=== PATIENT | female | born 1930 | race Caucasian/White ===

== ENCOUNTER 2016-10-30 09:41 | Inpatient (IN) | payer OTHER, MEDICAID ==
[~2016-10-30] VITALS: Ht 152.4 cm; Wt 83.0 kg
[2016-10-30 09:41] VITALS: BP 110/54; PULSE 100; RESP 21; TEMP 99.4; O2SAT 82
[2016-10-30] MEDS ORDERED: NACL 0.9% 1,000 ML IV ONE (09:55)
[2016-10-30] MEDS ORDERED: ONDANSETRON HCL 4 MG/2 ML VIAL IVP ONE (10:00)
[2016-10-30] MEDS ORDERED: LIP10 PO (10:23)
[2016-10-30] MEDS ORDERED: GABA-531 PO (10:23)
[2016-10-30] MEDS ORDERED: BENA20TA2 PO (10:23)
[2016-10-30] MEDS ORDERED: ALEN70TA3 PO (10:23)
[2016-10-30] MEDS ORDERED: PIOG15TA66 PO (10:23)
[2016-10-30] MEDS ORDERED: ASPI-1063 PO (10:23)
[2016-10-30] MEDS ORDERED: DULR10 RC (10:23)
[2016-10-30] MEDS ORDERED: CALC-995 PO (10:23)
[2016-10-30 10:39] LABS: ANION GAP 8 (5-15); CALCIUM 8.5 mg/dL (8.4-11.0); CHLORIDE 104 mmol/L (98-107); CREATININE 1.57 mg/dL (0.55-1.30); GLUCOSE 132 mg/dL (70-99); POTASSIUM 4.2 mmol/L (3.5-5.1); SODIUM SERUM 140 mmol/L (136-145); UREA NITROGEN, BLOOD 22 mg/dL (8-21)
[2016-10-30 10:43] LABS: ALANINE AMINOTRANSFERASE 14 U/L (12-78); ALBUMIN 2.9 g/dL (3.4-4.8); AMYLASE 37 U/L (0-100); ASPARTATE AMINOTRANSFERASE 45 U/L (10-37); INR 1.1 (0.8-1.2); LIPASE 63 U/L (73-393); PROTHROMBIN TIME 12.2 SECS (9.5-12.5); TOTAL BILIRUBIN 0.6 mg/dL (0.0-1.0); TOTAL PROTEIN, SERUM 7.1 g/dL (6.4-8.3)
[2016-10-30] MEDS ORDERED: MOB7.5 PO (10:58)
[2016-10-30] MEDS ORDERED: MECL12.584 PO (10:58)
[2016-10-30] MEDS ORDERED: METO-442 PO (10:58)
[2016-10-30] MEDS ORDERED: OMEP20CA10 PO (10:58)
[2016-10-30] MEDS ORDERED: SERT100T PO (10:58)
[2016-10-30] MEDS ORDERED: GLU500 PO (10:58)
[2016-10-30] MEDS ORDERED: RISP1TAB7 PO (10:58)
[2016-10-30] MEDS ORDERED: ACET-2165 PO (10:58)
[2016-10-30 11:07] LABS: BILIRUBIN,URINE NEGATIVE (NEGATIVE); BLOOD, URINE 1+ (NEGATIVE); CLARITY/URINE HAZY (CLEAR); COLOR,URINE YELLOW (YELLOW); GLUCOSE,URINE NEGATIVE (NEGATIVE); KETONES,URINE NEGATIVE (NEGATIVE); LEUKOCYTE ESTERASE ,URINE TRACE (NEGATIVE); NITRITE, URINE NEGATIVE (NEGATIVE); PH,URINE 5.5 (5.0-8.0); PROTEIN URINE TRACE (NEGATIVE); UROBILINOGEN,URINE 0.2 (0.2-1.0)
[2016-10-30 11:10] LABS: BASOPHILS % (AUTO) 0.2 % (0.0-2.0); HEMATOCRIT 25.4 % (36-48); HEMOGLOBIN 7.9 g/dL (12.0-16.0); LYMPHOCYTES # (AUTO) 0.4 K/uL (1.0-5.5); LYMPHOCYTES % (AUTO) 3.4 % (20.5-51.5); MEAN CORPUSCULAR HEMOGLOBIN 27 pg (27-31); MEAN CORPUSCULAR HGB CONC 31 % (32-36); MEAN CORPUSCULAR VOLUME 87 fL (79.0-98.0); MONOCYTES # (AUTO) 1.1 K/uL (0.0-1.0); MONOCYTES % (AUTO) 8.7 % (1.7-9.3); NEUTROPHILS # (AUTO) 10.9 K/uL (1.8-7.7); NEUTROPHILS % (AUTO) 87.7 % (40.0-70.0); PLATELET COUNT (AUTO) 270 K/uL (130-430); RED BLOOD CELL COUNT(AUTO) 2.91 MIL/uL (4.2-6.2); RED CELL DISTRIBUTION WIDTH 17.4 % (9.0-15.0); WHITE BLOOD COUNT (AUTO) 12.4 K/uL (4.8-10.8)
[2016-10-30 11:42] LABS: BACTERIA,URINE MANY /HPF (None Seen); RBC,URINE 0-3 /HPF (0-3)
[2016-10-30 11:43] LABS: MUCUS,URINE None Seen /LPF (None Seen)
[2016-10-30] MEDS ORDERED: ACETAMINOPHEN 325 MG TABLET PO PRN (13:45)
[2016-10-30] MEDS ORDERED: BISACODYL 10 MG/SUPPOSITORY RC PRN (13:45)
[2016-10-30] MEDS ORDERED: CEFEPIME 1 GM in D5W 50 ML IV ONE (14:00)
[2016-10-30 14:06] VITALS: BP 121/58; PULSE 91; RESP 16; TEMP 99.1; O2SAT 96
[2016-10-30 14:52] VITALS: BP 121/58; PULSE 91; RESP 16; TEMP 99.1; O2SAT 97
[2016-10-30 20:00] VITALS: BP 116/59; PULSE 84; RESP 20; TEMP 97.8
[2016-10-30] MEDS: ATORVASTATIN 10 MG TABLET PO SCH (20:37)
[2016-10-30] MEDS: GABAPENTIN 300 MG CAPSULE PO SCH (20:37)
[2016-10-30] MEDS: risperiDONE 1 MG TABLET (RisperDAL) PO SCH (20:37)
[2016-10-30 23:58] VITALS: BP 100/52; PULSE 80; RESP 18; TEMP 97.8; O2SAT 97
[2016-10-31 03:43] VITALS: BP 132/66; PULSE 88; RESP 18; TEMP 97.6; O2SAT 97
[2016-10-31 07:55] VITALS: BP 149/71; PULSE 92; RESP 16; TEMP 97.8; O2SAT 100
[2016-10-31] MEDS: risperiDONE 1 MG TABLET (RisperDAL) PO SCH ×2 (10:06→20:52)
[2016-10-31] MEDS: GABAPENTIN 300 MG CAPSULE PO SCH ×2 (10:06→20:52)
[2016-10-31] MEDS: ASPIRIN 81 MG TABLET(ECOTRIN) PO SCH (10:07)
[2016-10-31] MEDS: SERTRALINE HCL 50 MG TABLET PO SCH (10:08)
[2016-10-31] MEDS: NACL 0.9% 1,000 ML IV SCH ×2 (10:12→20:52)
[2016-10-31 10:43] LABS: BASOPHILS % (AUTO) 0.5 % (0.0-2.0); EOSINOPHILS # (AUTO) 0.1 K/uL (0.0-0.4); HEMOGLOBIN 7.8 g/dL (12.0-16.0); LYMPHOCYTES # (AUTO) 0.8 K/uL (1.0-5.5); LYMPHOCYTES % (AUTO) 9.4 % (20.5-51.5); MEAN CORPUSCULAR HEMOGLOBIN 27 pg (27-31); MEAN CORPUSCULAR HGB CONC 31 % (32-36); MEAN CORPUSCULAR VOLUME 88 fL (79.0-98.0); MONOCYTES # (AUTO) 0.4 K/uL (0.0-1.0); MONOCYTES % (AUTO) 4.8 % (1.7-9.3); NEUTROPHILS # (AUTO) 6.9 K/uL (1.8-7.7); NEUTROPHILS % (AUTO) 84.3 % (40.0-70.0); PLATELET COUNT (AUTO) 263 K/uL (130-430); RED BLOOD CELL COUNT(AUTO) 2.85 MIL/uL (4.2-6.2); RED CELL DISTRIBUTION WIDTH 17.9 % (9.0-15.0)
[2016-10-31 10:46] LABS: ANION GAP 5 (5-15); CALCIUM 8.3 mg/dL (8.4-11.0); CHLORIDE 106 mmol/L (98-107); CREATININE 1.53 mg/dL (0.55-1.30); GLUCOSE 194 mg/dL (70-99); POTASSIUM 4.3 mmol/L (3.5-5.1); SODIUM SERUM 141 mmol/L (136-145); UREA NITROGEN, BLOOD 26 mg/dL (8-21)
[2016-10-31 10:52] LABS: WHITE BLOOD COUNT (AUTO) 8.2 K/uL (4.8-10.8)
[2016-10-31 11:28] VITALS: BP 106/47; PULSE 106; RESP 19; TEMP 98.1; O2SAT 96
[2016-10-31 15:28] VITALS: BP 141/66; PULSE 98; RESP 19; TEMP 99.1; O2SAT 99
[2016-10-31 19:30] VITALS: BP 158/81; PULSE 102; RESP 18; TEMP 99.2; O2SAT 95
[2016-10-31] MEDS: ATORVASTATIN 10 MG TABLET PO SCH (20:52)
[2016-10-31] MEDS: CEFEPIME 1 GM in D5W 50 ML IV SCH (21:21)
[2016-11-01] VITALS (8 sets, daily range): BP systolic 97–161; BP diastolic 52–96; PULSE 80–100; RESP 18–20; TEMP 97.8–99.4; O2SAT 93–98
[2016-11-01 07:28] LABS: BASOPHILS % (AUTO) 0.6 % (0.0-2.0); EOSINOPHILS # (AUTO) 0.1 K/uL (0.0-0.4); EOSINOPHILS % (AUTO) 1.9 % (0.0-4.0); HEMATOCRIT 23.7 % (36-48); HEMOGLOBIN 7.4 g/dL (12.0-16.0); LYMPHOCYTES # (AUTO) 0.9 K/uL (1.0-5.5); MEAN CORPUSCULAR HEMOGLOBIN 28 pg (27-31); MEAN CORPUSCULAR HGB CONC 31 % (32-36); MEAN CORPUSCULAR VOLUME 88 fL (79.0-98.0); MONOCYTES # (AUTO) 0.5 K/uL (0.0-1.0); MONOCYTES % (AUTO) 8.3 % (1.7-9.3); NEUTROPHILS % (AUTO) 75.2 % (40.0-70.0); PLATELET COUNT (AUTO) 251 K/uL (130-430); RED BLOOD CELL COUNT(AUTO) 2.69 MIL/uL (4.2-6.2); RED CELL DISTRIBUTION WIDTH 17.8 % (9.0-15.0); WHITE BLOOD COUNT (AUTO) 6.5 K/uL (4.8-10.8)
[2016-11-01 07:34] LABS: ANION GAP 4 (5-15); CALCIUM 7.9 mg/dL (8.4-11.0); CHLORIDE 105 mmol/L (98-107); CREATININE 1.18 mg/dL (0.55-1.30); FREE T4 (FREE THYROXINE) 0.8 ng/dL (0.6-1.6); GLUCOSE 121 mg/dL (70-99); POTASSIUM 4.2 mmol/L (3.5-5.1); SODIUM SERUM 139 mmol/L (136-145); THYROID STIMULATING HORMONE 1.07 uIu/mL (0.34-4.82); UREA NITROGEN, BLOOD 21 mg/dL (8-21)
[2016-11-01] MEDS: GABAPENTIN 300 MG CAPSULE PO SCH ×2 (09:46→21:29)
[2016-11-01] MEDS: SERTRALINE HCL 50 MG TABLET PO SCH (09:46)
[2016-11-01] MEDS: risperiDONE 1 MG TABLET (RisperDAL) PO SCH ×2 (09:46→21:29)
[2016-11-01] MEDS: NACL 0.9% 1,000 ML IV SCH (09:47)
[2016-11-01] MEDS: ASPIRIN 81 MG TABLET(ECOTRIN) PO SCH (09:47)
[2016-11-01] MEDS: CEFEPIME 1 GM in D5W 50 ML IV SCH ×2 (10:26→21:28)
[2016-11-01] MEDS: INSULIN REGULAR, HUMAN 100 UNITS/ML, 10 ML VIAL (novoLIN R) SUBCUT PRN (13:15)
[2016-11-01] MEDS ORDERED: FUROSEMIDE 20 MG/2 ML VIAL IVP ONE ×2 (14:45→23:45)
[2016-11-01] MEDS: ATORVASTATIN 10 MG TABLET PO SCH (21:28)
[2016-11-02] MEDS: IPRATROPIUM/ALBUTEROL SULFATE 3 ML AMPUL.NEB INH SCH ×7 (02:12→23:23)
[2016-11-02] MEDS: NACL 0.9% 1,000 ML IV SCH ×2 (02:52→10:54)
[2016-11-02 05:46] VITALS: BP 113/70; PULSE 84; RESP 22; TEMP 99.2; O2SAT 94
[2016-11-02 06:35] LABS: ANION GAP 7 (5-15); CALCIUM 8.2 mg/dL (8.4-11.0); CHLORIDE 106 mmol/L (98-107); CREATININE 1.22 mg/dL (0.55-1.30); GLUCOSE 155 mg/dL (70-99); POTASSIUM 4.1 mmol/L (3.5-5.1); SODIUM SERUM 141 mmol/L (136-145); UREA NITROGEN, BLOOD 18 mg/dL (8-21)
[2016-11-02 06:36] LABS: BASOPHILS % (AUTO) 0.7 % (0.0-2.0); EOSINOPHILS # (AUTO) 0.1 K/uL (0.0-0.4); EOSINOPHILS % (AUTO) 0.8 % (0.0-4.0); HEMATOCRIT 24.4 % (36-48); HEMOGLOBIN 7.6 g/dL (12.0-16.0); LYMPHOCYTES # (AUTO) 0.8 K/uL (1.0-5.5); LYMPHOCYTES % (AUTO) 12.5 % (20.5-51.5); MEAN CORPUSCULAR HEMOGLOBIN 27 pg (27-31); MEAN CORPUSCULAR HGB CONC 31 % (32-36); MEAN CORPUSCULAR VOLUME 88 fL (79.0-98.0); MONOCYTES # (AUTO) 0.8 K/uL (0.0-1.0); MONOCYTES % (AUTO) 11.4 % (1.7-9.3); NEUTROPHILS # (AUTO) 4.9 K/uL (1.8-7.7); NEUTROPHILS % (AUTO) 74.6 % (40.0-70.0); PLATELET COUNT (AUTO) 236 K/uL (130-430); RED BLOOD CELL COUNT(AUTO) 2.76 MIL/uL (4.2-6.2); RED CELL DISTRIBUTION WIDTH 17.9 % (9.0-15.0); WHITE BLOOD COUNT (AUTO) 6.6 K/uL (4.8-10.8)
[2016-11-02 08:00] VITALS: BP 139/62; PULSE 104; RESP 24; TEMP 98; O2SAT 94
[2016-11-02] MEDS: CEFEPIME 1 GM in D5W 50 ML IV SCH ×2 (09:29→21:24)
[2016-11-02] MEDS: SERTRALINE HCL 50 MG TABLET PO SCH (09:29)
[2016-11-02] MEDS: GABAPENTIN 300 MG CAPSULE PO SCH ×2 (09:30→21:26)
[2016-11-02] MEDS: ASPIRIN 81 MG TABLET(ECOTRIN) PO SCH (09:30)
[2016-11-02] MEDS: risperiDONE 1 MG TABLET (RisperDAL) PO SCH ×2 (09:30→21:27)
[2016-11-02] MEDS: LISINOPRIL 10 MG TABLET (PRINIVIL) PO SCH (09:31)
[2016-11-02 12:36] VITALS: BP 130/60; PULSE 90; RESP 19; TEMP 98; O2SAT 98
[2016-11-02 16:20] VITALS: BP 138/72; PULSE 94; RESP 18; TEMP 97.8; O2SAT 97
[2016-11-02 19:00] VITALS: BP 145/76; PULSE 101; RESP 16; TEMP 98.1; O2SAT 98
[2016-11-02 20:00] VITALS: BP 145/76; PULSE 101; RESP 16; TEMP 98.1; O2SAT 98
[2016-11-02] MEDS: ATORVASTATIN 10 MG TABLET PO SCH (21:26)
[2016-11-03] VITALS (7 sets, daily range): BP systolic 126–188; BP diastolic 64–101; PULSE 70–104; RESP 16–22; TEMP 97.1–98.8; O2SAT 91–97
[2016-11-03] MEDS: NACL 0.9% 1,000 ML IV SCH (03:29)
[2016-11-03] MEDS: IPRATROPIUM/ALBUTEROL SULFATE 3 ML AMPUL.NEB INH SCH ×6 (03:52→23:25)
[2016-11-03 07:27] LABS: BASOPHILS % (AUTO) 0.8 % (0.0-2.0); EOSINOPHILS # (AUTO) 0.1 K/uL (0.0-0.4); EOSINOPHILS % (AUTO) 2.6 % (0.0-4.0); HEMATOCRIT 24.7 % (36-48); HEMOGLOBIN 7.7 g/dL (12.0-16.0); LYMPHOCYTES # (AUTO) 0.8 K/uL (1.0-5.5); LYMPHOCYTES % (AUTO) 17.9 % (20.5-51.5); MEAN CORPUSCULAR HEMOGLOBIN 28 pg (27-31); MEAN CORPUSCULAR HGB CONC 31 % (32-36); MEAN CORPUSCULAR VOLUME 89 fL (79.0-98.0); MONOCYTES # (AUTO) 0.5 K/uL (0.0-1.0); MONOCYTES % (AUTO) 11.2 % (1.7-9.3); NEUTROPHILS # (AUTO) 3.2 K/uL (1.8-7.7); NEUTROPHILS % (AUTO) 67.5 % (40.0-70.0); PLATELET COUNT (AUTO) 248 K/uL (130-430); RED BLOOD CELL COUNT(AUTO) 2.78 MIL/uL (4.2-6.2); RED CELL DISTRIBUTION WIDTH 18.4 % (9.0-15.0)
[2016-11-03 07:44] LABS: WHITE BLOOD COUNT (AUTO) 4.6 K/uL (4.8-10.8)
[2016-11-03] MEDS: CEFEPIME 1 GM in D5W 50 ML IV SCH (08:41)
[2016-11-03] MEDS: GABAPENTIN 300 MG CAPSULE PO SCH ×2 (08:42→21:22)
[2016-11-03] MEDS: risperiDONE 1 MG TABLET (RisperDAL) PO SCH ×2 (08:42→21:22)
[2016-11-03] MEDS: SERTRALINE HCL 50 MG TABLET PO SCH (08:42)
[2016-11-03] MEDS: ASPIRIN 81 MG TABLET(ECOTRIN) PO SCH (08:42)
[2016-11-03] MEDS: LISINOPRIL 10 MG TABLET (PRINIVIL) PO SCH (08:43)
[2016-11-03] MEDS: cloNIDine HCL 0.1 MG TABLET PO PRN (08:44)
[2016-11-03] MEDS ORDERED: LISINOPRIL 10 MG TABLET (PRINIVIL) PO ONE (11:45)
[2016-11-03] MEDS ORDERED: METOPROLOL SUCCINATE 50 MG TAB.SR.24H (TOPROL XL) PO ONE (12:00)
[2016-11-03] MEDS ORDERED: cefTRIAXone 1 GM in D5W 50 ML IV SCH (12:15)
[2016-11-03] MEDS ORDERED: CEFTAZIDIME 1 GM in D5W 50 ML IV ONE (13:15)
[2016-11-03] MEDS: CEFTAZIDIME 1 GM in D5W 50 ML IV SCH (21:21)
[2016-11-03] MEDS: ATORVASTATIN 10 MG TABLET PO SCH (21:22)
[2016-11-04] VITALS: BP 156/83; PULSE 91; RESP 18; TEMP 97.6; O2SAT 95
[2016-11-04] MEDS: NACL 0.9% 1,000 ML IV SCH ×2 (00:06→21:18)
[2016-11-04] MEDS: cloNIDine HCL 0.1 MG TABLET PO PRN (00:10)
[2016-11-04] MEDS: IPRATROPIUM/ALBUTEROL SULFATE 3 ML AMPUL.NEB INH SCH ×6 (03:00→23:37)
[2016-11-04 04:33] VITALS: BP 148/82; PULSE 89; RESP 18; TEMP 98; O2SAT 96
[2016-11-04 08:00] VITALS: BP 125/63; PULSE 84; RESP 15; TEMP 97.9; O2SAT 95
[2016-11-04] MEDS: SERTRALINE HCL 50 MG TABLET PO SCH (09:40)
[2016-11-04] MEDS: GABAPENTIN 300 MG CAPSULE PO SCH ×2 (09:42→21:18)
[2016-11-04] MEDS: risperiDONE 1 MG TABLET (RisperDAL) PO SCH ×2 (09:42→21:18)
[2016-11-04] MEDS: LISINOPRIL 10 MG TABLET (PRINIVIL) PO SCH (09:42)
[2016-11-04] MEDS: METOPROLOL SUCCINATE 50 MG TAB.SR.24H (TOPROL XL) PO SCH (09:43)
[2016-11-04] MEDS: ASPIRIN 81 MG TABLET(ECOTRIN) PO SCH (09:43)
[2016-11-04] MEDS: CEFTAZIDIME 1 GM in D5W 50 ML IV SCH ×2 (09:44→21:14)
[2016-11-04 12:08] VITALS: BP 114/56; PULSE 78; RESP 17; TEMP 97.4; O2SAT 98
[2016-11-04] MEDS: INSULIN REGULAR, HUMAN 100 UNITS/ML, 10 ML VIAL (novoLIN R) SUBCUT PRN ×2 (13:50→21:34)
[2016-11-04 16:09] VITALS: Ht 152.4 cm; Wt 83.0 kg
[2016-11-04 16:12] VITALS: BP 118/65; PULSE 71; RESP 19; TEMP 97.7; O2SAT 100
[2016-11-04 19:50] VITALS: BP 134/65; PULSE 89; RESP 18; TEMP 97.9; O2SAT 98
[2016-11-04] MEDS: ATORVASTATIN 10 MG TABLET PO SCH (21:18)
[2016-11-05] VITALS: BP 113/54; PULSE 87; PULSE 95; RESP 16; TEMP 97.8; O2SAT 95
[2016-11-05] MEDS: IPRATROPIUM/ALBUTEROL SULFATE 3 ML AMPUL.NEB INH SCH ×7 (03:00→23:35)
[2016-11-05 04:00] VITALS: BP 131/69; PULSE 83; RESP 18; TEMP 97.8; O2SAT 97
[2016-11-05 07:32] LABS: BASOPHILS # (AUTO) 0.1 K/uL (0.0-0.2); EOSINOPHILS # (AUTO) 0.2 K/uL (0.0-0.4); EOSINOPHILS % (AUTO) 3.5 % (0.0-4.0); HEMATOCRIT 22.6 % (36-48); HEMOGLOBIN 7.2 g/dL (12.0-16.0); LYMPHOCYTES # (AUTO) 0.7 K/uL (1.0-5.5); MEAN CORPUSCULAR HEMOGLOBIN 28 pg (27-31); MEAN CORPUSCULAR HGB CONC 32 % (32-36); MEAN CORPUSCULAR VOLUME 88 fL (79.0-98.0); MONOCYTES # (AUTO) 0.6 K/uL (0.0-1.0); MONOCYTES % (AUTO) 10.4 % (1.7-9.3); NEUTROPHILS # (AUTO) 3.7 K/uL (1.8-7.7); NEUTROPHILS % (AUTO) 71.1 % (40.0-70.0); PLATELET COUNT (AUTO) 244 K/uL (130-430); RED BLOOD CELL COUNT(AUTO) 2.58 MIL/uL (4.2-6.2); RED CELL DISTRIBUTION WIDTH 17.9 % (9.0-15.0); WHITE BLOOD COUNT (AUTO) 5.3 K/uL (4.8-10.8)
[2016-11-05 07:46] LABS: ANION GAP 6 (5-15); CHLORIDE 108 mmol/L (98-107); CREATININE 0.95 mg/dL (0.55-1.30); GLUCOSE 105 mg/dL (70-99); POTASSIUM 4.3 mmol/L (3.5-5.1); SODIUM SERUM 141 mmol/L (136-145); UREA NITROGEN, BLOOD 17 mg/dL (8-21)
[2016-11-05] MEDS: GABAPENTIN 300 MG CAPSULE PO SCH ×2 (09:00→21:17)
[2016-11-05] MEDS: LISINOPRIL 10 MG TABLET (PRINIVIL) PO SCH (09:00)
[2016-11-05] MEDS: METOPROLOL SUCCINATE 50 MG TAB.SR.24H (TOPROL XL) PO SCH (09:00)
[2016-11-05] MEDS: SERTRALINE HCL 50 MG TABLET PO SCH (09:00)
[2016-11-05] MEDS: risperiDONE 1 MG TABLET (RisperDAL) PO SCH ×2 (09:00→21:17)
[2016-11-05] MEDS: ASPIRIN 81 MG TABLET(ECOTRIN) PO SCH (09:00)
[2016-11-05 10:01] VITALS: BP 131/69; PULSE 81
[2016-11-05] MEDS: CEFTAZIDIME 1 GM in D5W 50 ML IV SCH ×2 (11:57→20:46)
[2016-11-05 12:00] VITALS: BP 104/3; PULSE 79; RESP 18; TEMP 97.7; O2SAT 100
[2016-11-05] MEDS ORDERED: SIMETHICONE 40 MG/0.6 ML ML ONE (12:00)
[2016-11-05] MEDS: MEPERIDINE HCL/PF 100 MG/ML AMP ONE ×2 (13:24→13:29)
[2016-11-05] MEDS: MIDAZOLAM HCL 5 MG/5 ML VIAL ONE ×2 (13:24→13:29)
[2016-11-05] MEDS ORDERED: SORBITOL 70% SOLUTION, 30 ML UDBTL PO ONE (14:00)
[2016-11-05 16:00] VITALS: BP 121/55; PULSE 86; RESP 18; TEMP 97.3; O2SAT 98
[2016-11-05] MEDS: LACTULOSE 20 GM/30 ML UDC PO SCH ×2 (16:53→21:17)
[2016-11-05] MEDS ORDERED: BISACODYL 5 MG TABLET.DR (DULCOLAX) PO ONE (17:00)
[2016-11-05] MEDS ORDERED: MAGNESIUM CITRATE 300 ML ORAL SOLUTION PO ONE (19:00)
[2016-11-05 19:50] VITALS: BP 147/66; PULSE 95; RESP 18; TEMP 97; O2SAT 100
[2016-11-05] MEDS: ATORVASTATIN 10 MG TABLET PO SCH (21:17)
[2016-11-05] MEDS: NACL 0.9% 1,000 ML IV SCH (21:22)
[2016-11-05] MEDS: INSULIN REGULAR, HUMAN 100 UNITS/ML, 10 ML VIAL (novoLIN R) SUBCUT PRN (21:32)
[2016-11-06] MEDS: LACTULOSE 20 GM/30 ML UDC PO SCH ×2 (00:26→04:12)
[2016-11-06] MEDS ORDERED: FUROSEMIDE 20 MG/2 ML VIAL IVP ONE (01:15)
[2016-11-06 01:24] VITALS: BP 128/66; PULSE 96; RESP 20; TEMP 96.6; O2SAT 96
[2016-11-06] MEDS: IPRATROPIUM/ALBUTEROL SULFATE 3 ML AMPUL.NEB INH SCH ×6 (03:30→23:38)
[2016-11-06 05:05] VITALS: BP 143/71; PULSE 89; RESP 19; TEMP 97.3; O2SAT 98
[2016-11-06 07:34] LABS: BASOPHILS % (AUTO) 0.7 % (0.0-2.0); EOSINOPHILS # (AUTO) 0.2 K/uL (0.0-0.4); EOSINOPHILS % (AUTO) 2.9 % (0.0-4.0); HEMATOCRIT 29.8 % (36-48); HEMOGLOBIN 9.2 g/dL (12.0-16.0); LYMPHOCYTES # (AUTO) 0.6 K/uL (1.0-5.5); MEAN CORPUSCULAR HEMOGLOBIN 28 pg (27-31); MEAN CORPUSCULAR HGB CONC 31 % (32-36); MEAN CORPUSCULAR VOLUME 89 fL (79.0-98.0); MONOCYTES # (AUTO) 0.6 K/uL (0.0-1.0); MONOCYTES % (AUTO) 9.4 % (1.7-9.3); NEUTROPHILS # (AUTO) 4.6 K/uL (1.8-7.7); PLATELET COUNT (AUTO) 293 K/uL (130-430); RED BLOOD CELL COUNT(AUTO) 3.36 MIL/uL (4.2-6.2); RED CELL DISTRIBUTION WIDTH 17.5 % (9.0-15.0)
[2016-11-06 07:42] LABS: ANION GAP 7 (5-15); CALCIUM 8.8 mg/dL (8.4-11.0); CHLORIDE 111 mmol/L (98-107); CREATININE 1.05 mg/dL (0.55-1.30); GLUCOSE 130 mg/dL (70-99); POTASSIUM 4.3 mmol/L (3.5-5.1); SODIUM SERUM 146 mmol/L (136-145); UREA NITROGEN, BLOOD 14 mg/dL (8-21)
[2016-11-06 08:07] LABS: INR 1.1 (0.8-1.2); PROTHROMBIN TIME 11.9 SECS (9.5-12.5)
[2016-11-06 08:09] LABS: IRON (SERUM) 33 mcg/dL (37-145); TOTAL IRON BIND. CAPACITY 329 ug/dL (250-450)
[2016-11-06] MEDS: METOPROLOL SUCCINATE 50 MG TAB.SR.24H (TOPROL XL) PO SCH (08:23)
[2016-11-06] MEDS: CEFTAZIDIME 1 GM in D5W 50 ML IV SCH ×2 (08:24→21:39)
[2016-11-06 08:49] VITALS: BP 159/68; PULSE 93; RESP 18; TEMP 96.8; O2SAT 97
[2016-11-06] MEDS: GABAPENTIN 300 MG CAPSULE PO SCH ×2 (09:00→20:40)
[2016-11-06] MEDS: risperiDONE 1 MG TABLET (RisperDAL) PO SCH ×2 (09:00→20:40)
[2016-11-06 12:14] LABS: AFP, TUMOR MARKER 1.9 ng/mL (0.0-8.3)
[2016-11-06] MEDS ORDERED: SIMETHICONE 40 MG/0.6 ML ML ONE (12:41)
[2016-11-06 12:55] VITALS: BP 175/77; PULSE 81; RESP 17; TEMP 97.9; O2SAT 100
[2016-11-06] MEDS: MIDAZOLAM HCL 5 MG/5 ML VIAL ONE ×3 (15:16→15:23)
[2016-11-06] MEDS: MEPERIDINE HCL/PF 50 MG/ML AMP ONE ×3 (15:16→15:23)
[2016-11-06] MEDS: ASPIRIN 81 MG TABLET(ECOTRIN) PO SCH (17:49)
[2016-11-06] MEDS: LISINOPRIL 10 MG TABLET (PRINIVIL) PO SCH (17:50)
[2016-11-06] MEDS: SERTRALINE HCL 50 MG TABLET PO SCH (17:51)
[2016-11-06 18:55] VITALS: BP 167/85; PULSE 81; RESP 17; TEMP 98.5; O2SAT 94
[2016-11-06 18:58] LABS: ANTI NUCLEAR AB WITH REFLEX Negative (Negative)
[2016-11-06 19:45] VITALS: BP 149/72; PULSE 82; RESP 18; TEMP 98.5; O2SAT 97
[2016-11-06] MEDS: ATORVASTATIN 10 MG TABLET PO SCH (20:40)
[2016-11-06] MEDS: NACL 0.9% 1,000 ML IV SCH (20:40)
[2016-11-06] MEDS: INSULIN REGULAR, HUMAN 100 UNITS/ML, 10 ML VIAL (novoLIN R) SUBCUT PRN (20:41)
[2016-11-06 21:50] LABS: RBC, BODY FLUID 99 /uL
[2016-11-06 21:54] LABS: WBC, BODY FLUID 134 /uL
[2016-11-07] VITALS (7 sets, daily range): BP systolic 119–153; BP diastolic 55–81; PULSE 67–82; RESP 16–18; TEMP 97.2–98.4; O2SAT 97–98
[2016-11-07] MEDS: IPRATROPIUM/ALBUTEROL SULFATE 3 ML AMPUL.NEB INH SCH ×6 (03:26→23:25)
[2016-11-07] MEDS: MEPERIDINE HCL/PF 50 MG/ML AMP ONE (06:15)
[2016-11-07] MEDS: MIDAZOLAM HCL 5 MG/5 ML VIAL ONE (06:15)
[2016-11-07 06:59] LABS: BASOPHILS % (AUTO) 0.7 % (0.0-2.0); EOSINOPHILS # (AUTO) 0.1 K/uL (0.0-0.4); EOSINOPHILS % (AUTO) 2.4 % (0.0-4.0); HEMATOCRIT 26.3 % (36-48); HEMOGLOBIN 8.2 g/dL (12.0-16.0); LYMPHOCYTES # (AUTO) 0.8 K/uL (1.0-5.5); LYMPHOCYTES % (AUTO) 16.6 % (20.5-51.5); MEAN CORPUSCULAR HEMOGLOBIN 28 pg (27-31); MEAN CORPUSCULAR HGB CONC 31 % (32-36); MEAN CORPUSCULAR VOLUME 90 fL (79.0-98.0); MONOCYTES # (AUTO) 0.5 K/uL (0.0-1.0); MONOCYTES % (AUTO) 9.3 % (1.7-9.3); NEUTROPHILS # (AUTO) 3.6 K/uL (1.8-7.7); PLATELET COUNT (AUTO) 249 K/uL (130-430); RED BLOOD CELL COUNT(AUTO) 2.94 MIL/uL (4.2-6.2); RED CELL DISTRIBUTION WIDTH 17.7 % (9.0-15.0)
[2016-11-07 07:13] LABS: ANION GAP 5 (5-15); CHLORIDE 113 mmol/L (98-107); CREATININE 0.83 mg/dL (0.55-1.30); GLUCOSE 100 mg/dL (70-99); POTASSIUM 3.6 mmol/L (3.5-5.1); SODIUM SERUM 145 mmol/L (136-145); UREA NITROGEN, BLOOD 13 mg/dL (8-21)
[2016-11-07] MEDS: CEFTAZIDIME 1 GM in D5W 50 ML IV SCH ×2 (08:37→21:25)
[2016-11-07] MEDS: LISINOPRIL 10 MG TABLET (PRINIVIL) PO SCH (08:38)
[2016-11-07] MEDS: METOPROLOL SUCCINATE 50 MG TAB.SR.24H (TOPROL XL) PO SCH (08:39)
[2016-11-07 09:39] LABS: ALPHA-1-ANTITRYPSIN, S 207 mg/dL (90-200)
[2016-11-07 11:08] LABS: FOLATE (FOLIC ACID) 9.4 ng/mL (>3.0)
[2016-11-07 11:08] LABS: HEPATITIS A AB, IgM Negative (Negative); HEPATITIS B CORE AB, IgM Negative (Negative); HEPATITIS B SURFACE AG Negative (Negative)
[2016-11-07] MEDS: GABAPENTIN 300 MG CAPSULE PO SCH ×2 (11:59→21:26)
[2016-11-07] MEDS: SERTRALINE HCL 50 MG TABLET PO SCH (12:00)
[2016-11-07] MEDS: risperiDONE 1 MG TABLET (RisperDAL) PO SCH ×2 (12:00→21:27)
[2016-11-07] MEDS: ASPIRIN 81 MG TABLET(ECOTRIN) PO SCH (12:00)
[2016-11-07 12:08] LABS: ANTI-SMOOTH MUSCLE AB 9 Units (0-19)
[2016-11-07] MEDS: ATORVASTATIN 10 MG TABLET PO SCH (21:26)
[2016-11-08] VITALS (8 sets, daily range): BP systolic 133–162; BP diastolic 64–80; PULSE 72–83; RESP 17–19; TEMP 97.1–98.9; O2SAT 94–99
[2016-11-08] MEDS: IPRATROPIUM/ALBUTEROL SULFATE 3 ML AMPUL.NEB INH SCH ×5 (03:00→20:58)
[2016-11-08] MEDS: D5/0.45 NS 1,000 ML IV SCH (05:46)
[2016-11-08 07:30] LABS: BASOPHILS % (AUTO) 0.9 % (0.0-2.0); EOSINOPHILS # (AUTO) 0.2 K/uL (0.0-0.4); EOSINOPHILS % (AUTO) 3.3 % (0.0-4.0); HEMOGLOBIN 8.6 g/dL (12.0-16.0); LYMPHOCYTES % (AUTO) 17.7 % (20.5-51.5); MEAN CORPUSCULAR HEMOGLOBIN 28 pg (27-31); MEAN CORPUSCULAR HGB CONC 31 % (32-36); MONOCYTES # (AUTO) 0.5 K/uL (0.0-1.0); MONOCYTES % (AUTO) 9.2 % (1.7-9.3); NEUTROPHILS # (AUTO) 3.7 K/uL (1.8-7.7); NEUTROPHILS % (AUTO) 68.9 % (40.0-70.0); PLATELET COUNT (AUTO) 249 K/uL (130-430); RED CELL DISTRIBUTION WIDTH 17.3 % (9.0-15.0); WHITE BLOOD COUNT (AUTO) 5.4 K/uL (4.8-10.8)
[2016-11-08 07:47] LABS: HEMATOCRIT 27.7 % (36-48); MEAN CORPUSCULAR VOLUME 89 fL (79.0-98.0); RED BLOOD CELL COUNT(AUTO) 3.11 MIL/uL (4.2-6.2)
[2016-11-08] MEDS: ASPIRIN 81 MG TABLET(ECOTRIN) PO SCH (10:02)
[2016-11-08] MEDS: SERTRALINE HCL 50 MG TABLET PO SCH (10:03)
[2016-11-08] MEDS: FUROSEMIDE 40 MG TABLET PO SCH (10:03)
[2016-11-08] MEDS: GABAPENTIN 300 MG CAPSULE PO SCH ×2 (10:03→20:51)
[2016-11-08] MEDS: SPIRONOLACTONE 50 MG TABLET (ALDACTONE) PO SCH (10:04)
[2016-11-08] MEDS: LISINOPRIL 10 MG TABLET (PRINIVIL) PO SCH (10:13)
[2016-11-08] MEDS: cloNIDine HCL 0.1 MG TABLET PO PRN (10:13)
[2016-11-08] MEDS: risperiDONE 1 MG TABLET (RisperDAL) PO SCH ×2 (10:14→20:51)
[2016-11-08] MEDS: METOPROLOL SUCCINATE 50 MG TAB.SR.24H (TOPROL XL) PO SCH (10:14)
[2016-11-08] MEDS: CEFTAZIDIME 1 GM in D5W 50 ML IV SCH ×2 (10:15→20:51)
[2016-11-08] MEDS: INSULIN REGULAR, HUMAN 100 UNITS/ML, 10 ML VIAL (novoLIN R) SUBCUT PRN (18:10)
[2016-11-08] MEDS: ATORVASTATIN 10 MG TABLET PO SCH (20:51)
[2016-11-09] VITALS: BP 147/75; PULSE 76; RESP 16; TEMP 97.9; O2SAT 96
[2016-11-09 04:00] VITALS: BP 148/70; PULSE 74; RESP 16; TEMP 97.1; O2SAT 75
[2016-11-09] MEDS: IPRATROPIUM/ALBUTEROL SULFATE 3 ML AMPUL.NEB INH SCH ×5 (04:20→19:28)
[2016-11-09] MEDS: D5/0.45 NS 1,000 ML IV SCH ×2 (06:01→08:45)
[2016-11-09 07:01] LABS: ANION GAP 6 (5-15); CALCIUM 8.5 mg/dL (8.4-11.0); CHLORIDE 106 mmol/L (98-107); CREATININE 0.96 mg/dL (0.55-1.30); GLUCOSE 122 mg/dL (70-99); POTASSIUM 3.5 mmol/L (3.5-5.1); SODIUM SERUM 142 mmol/L (136-145); UREA NITROGEN, BLOOD 14 mg/dL (8-21)
[2016-11-09 07:12] LABS: BASOPHILS % (AUTO) 0.7 % (0.0-2.0); EOSINOPHILS # (AUTO) 0.1 K/uL (0.0-0.4); EOSINOPHILS % (AUTO) 2.4 % (0.0-4.0); HEMATOCRIT 29.5 % (36-48); HEMOGLOBIN 9.3 g/dL (12.0-16.0); LYMPHOCYTES # (AUTO) 0.7 K/uL (1.0-5.5); LYMPHOCYTES % (AUTO) 14.2 % (20.5-51.5); MEAN CORPUSCULAR HEMOGLOBIN 28 pg (27-31); MEAN CORPUSCULAR HGB CONC 32 % (32-36); MEAN CORPUSCULAR VOLUME 88 fL (79.0-98.0); MONOCYTES # (AUTO) 0.4 K/uL (0.0-1.0); MONOCYTES % (AUTO) 8.1 % (1.7-9.3); NEUTROPHILS % (AUTO) 74.6 % (40.0-70.0); PLATELET COUNT (AUTO) 265 K/uL (130-430); RED BLOOD CELL COUNT(AUTO) 3.35 MIL/uL (4.2-6.2); RED CELL DISTRIBUTION WIDTH 17.9 % (9.0-15.0); WHITE BLOOD COUNT (AUTO) 5.2 K/uL (4.8-10.8)
[2016-11-09 08:35] VITALS: BP 161/83; PULSE 82; RESP 16; TEMP 97.4; O2SAT 97
[2016-11-09] MEDS: CEFTAZIDIME 1 GM in D5W 50 ML IV SCH ×2 (10:27→21:28)
[2016-11-09] MEDS: ASPIRIN 81 MG TABLET(ECOTRIN) PO SCH (10:27)
[2016-11-09] MEDS: METOPROLOL SUCCINATE 50 MG TAB.SR.24H (TOPROL XL) PO SCH (10:27)
[2016-11-09] MEDS: LISINOPRIL 10 MG TABLET (PRINIVIL) PO SCH (10:28)
[2016-11-09] MEDS: FUROSEMIDE 40 MG TABLET PO SCH (10:28)
[2016-11-09] MEDS: risperiDONE 1 MG TABLET (RisperDAL) PO SCH ×2 (10:28→21:25)
[2016-11-09] MEDS: GABAPENTIN 300 MG CAPSULE PO SCH ×2 (10:28→21:25)
[2016-11-09] MEDS: SERTRALINE HCL 50 MG TABLET PO SCH (10:29)
[2016-11-09] MEDS: SPIRONOLACTONE 50 MG TABLET (ALDACTONE) PO SCH (10:29)
[2016-11-09 13:06] VITALS: BP 132/69; PULSE 82; RESP 19; TEMP 98.9; O2SAT 100
[2016-11-09 16:38] VITALS: BP 124/51; PULSE 83; RESP 17; TEMP 97.8; O2SAT 95
[2016-11-09] MEDS: ATORVASTATIN 10 MG TABLET PO SCH (21:25)
[2016-11-10 00:59] VITALS: BP 144/67; PULSE 81; RESP 16; TEMP 97.6; O2SAT 97
[2016-11-10] MEDS: IPRATROPIUM/ALBUTEROL SULFATE 3 ML AMPUL.NEB INH SCH ×7 (05:05→23:11)
[2016-11-10] MEDS: D5/0.45 NS 1,000 ML IV SCH (05:21)
[2016-11-10 06:25] VITALS: BP 139/72; PULSE 86; RESP 19; TEMP 98; O2SAT 97
[2016-11-10 06:35] LABS: BASOPHILS % (AUTO) 0.8 % (0.0-2.0); EOSINOPHILS # (AUTO) 0.1 K/uL (0.0-0.4); EOSINOPHILS % (AUTO) 2.2 % (0.0-4.0); HEMATOCRIT 27.6 % (36-48); HEMOGLOBIN 8.6 g/dL (12.0-16.0); LYMPHOCYTES % (AUTO) 16.9 % (20.5-51.5); MEAN CORPUSCULAR HEMOGLOBIN 27 pg (27-31); MEAN CORPUSCULAR HGB CONC 31 % (32-36); MEAN CORPUSCULAR VOLUME 88 fL (79.0-98.0); MONOCYTES # (AUTO) 0.4 K/uL (0.0-1.0); MONOCYTES % (AUTO) 6.8 % (1.7-9.3); NEUTROPHILS # (AUTO) 4.2 K/uL (1.8-7.7); NEUTROPHILS % (AUTO) 73.3 % (40.0-70.0); PLATELET COUNT (AUTO) 251 K/uL (130-430); RED BLOOD CELL COUNT(AUTO) 3.14 MIL/uL (4.2-6.2); WHITE BLOOD COUNT (AUTO) 5.7 K/uL (4.8-10.8)
[2016-11-10 06:47] LABS: ANION GAP 5 (5-15); CALCIUM 8.3 mg/dL (8.4-11.0); CHLORIDE 106 mmol/L (98-107); CREATININE 0.88 mg/dL (0.55-1.30); GLUCOSE 118 mg/dL (70-99); POTASSIUM 3.3 mmol/L (3.5-5.1); SODIUM SERUM 143 mmol/L (136-145); UREA NITROGEN, BLOOD 15 mg/dL (8-21)
[2016-11-10 08:20] VITALS: BP 141/71; PULSE 82; RESP 17; TEMP 97; O2SAT 93
[2016-11-10] MEDS: LINEZOLID 300 ML IV SCH ×2 (09:44→21:29)
[2016-11-10] MEDS: ASPIRIN 81 MG TABLET(ECOTRIN) PO SCH (09:44)
[2016-11-10] MEDS: FUROSEMIDE 40 MG TABLET PO SCH (09:45)
[2016-11-10] MEDS: LISINOPRIL 10 MG TABLET (PRINIVIL) PO SCH (09:45)
[2016-11-10] MEDS: SERTRALINE HCL 50 MG TABLET PO SCH (09:46)
[2016-11-10] MEDS: GABAPENTIN 300 MG CAPSULE PO SCH ×2 (09:48→21:29)
[2016-11-10] MEDS: SPIRONOLACTONE 50 MG TABLET (ALDACTONE) PO SCH (09:48)
[2016-11-10] MEDS: risperiDONE 1 MG TABLET (RisperDAL) PO SCH ×2 (09:48→21:29)
[2016-11-10] MEDS: METOPROLOL SUCCINATE 50 MG TAB.SR.24H (TOPROL XL) PO SCH (09:49)
[2016-11-10] MEDS: INSULIN REGULAR, HUMAN 100 UNITS/ML, 10 ML VIAL (novoLIN R) SUBCUT PRN (11:21)
[2016-11-10 12:07] VITALS: BP 112/55; PULSE 86; RESP 18; TEMP 97.4; O2SAT 93
[2016-11-10 16:19] VITALS: BP 119/61; PULSE 80; RESP 18; TEMP 97.3; O2SAT 94
[2016-11-10 20:00] VITALS: BP 135/65; PULSE 85; RESP 18; TEMP 97.4; O2SAT 93
[2016-11-10] MEDS: ATORVASTATIN 10 MG TABLET PO SCH (21:29)
[2016-11-10] MEDS: CEFTAZIDIME 1 GM in D5W 50 ML IV SCH (21:30)
[2016-11-11] VITALS: BP 125/60; PULSE 83; RESP 17; TEMP 97.8; O2SAT 95
[2016-11-11] MEDS: D5/0.45 NS 1,000 ML IV SCH (01:24)
[2016-11-11] MEDS: IPRATROPIUM/ALBUTEROL SULFATE 3 ML AMPUL.NEB INH SCH ×5 (02:56→20:00)
[2016-11-11 04:30] VITALS: BP 130/64; PULSE 82; RESP 16; TEMP 98.6; O2SAT 96
[2016-11-11 06:59] LABS: BASOPHILS % (AUTO) 0.8 % (0.0-2.0); EOSINOPHILS # (AUTO) 0.1 K/uL (0.0-0.4); EOSINOPHILS % (AUTO) 2.4 % (0.0-4.0); HEMATOCRIT 27.1 % (36-48); HEMOGLOBIN 8.7 g/dL (12.0-16.0); LYMPHOCYTES # (AUTO) 1.1 K/uL (1.0-5.5); LYMPHOCYTES % (AUTO) 18.2 % (20.5-51.5); MEAN CORPUSCULAR HEMOGLOBIN 28 pg (27-31); MEAN CORPUSCULAR HGB CONC 32 % (32-36); MEAN CORPUSCULAR VOLUME 87 fL (79.0-98.0); MONOCYTES # (AUTO) 0.5 K/uL (0.0-1.0); MONOCYTES % (AUTO) 7.9 % (1.7-9.3); NEUTROPHILS # (AUTO) 4.1 K/uL (1.8-7.7); NEUTROPHILS % (AUTO) 70.7 % (40.0-70.0); PLATELET COUNT (AUTO) 236 K/uL (130-430); RED CELL DISTRIBUTION WIDTH 17.8 % (9.0-15.0); WHITE BLOOD COUNT (AUTO) 5.8 K/uL (4.8-10.8)
[2016-11-11 07:01] LABS: ALANINE AMINOTRANSFERASE 14 U/L (12-78); ALBUMIN 2.2 g/dL (3.4-4.8); ANION GAP 3 (5-15); ASPARTATE AMINOTRANSFERASE 20 U/L (10-37); CALCIUM 8.3 mg/dL (8.4-11.0); CHLORIDE 103 mmol/L (98-107); CREATININE 1.12 mg/dL (0.55-1.30); GLUCOSE 107 mg/dL (70-99); POTASSIUM 3.9 mmol/L (3.5-5.1); SODIUM SERUM 142 mmol/L (136-145); TOTAL BILIRUBIN 0.2 mg/dL (0.0-1.0); UREA NITROGEN, BLOOD 20 mg/dL (8-21)
[2016-11-11] MEDS: CEFTAZIDIME 1 GM in D5W 50 ML IV SCH (08:40)
[2016-11-11] MEDS: risperiDONE 1 MG TABLET (RisperDAL) PO SCH (08:41)
[2016-11-11] MEDS: LISINOPRIL 10 MG TABLET (PRINIVIL) PO SCH (08:42)
[2016-11-11] MEDS: GABAPENTIN 300 MG CAPSULE PO SCH (08:43)
[2016-11-11] MEDS: SPIRONOLACTONE 50 MG TABLET (ALDACTONE) PO SCH (08:43)
[2016-11-11] MEDS: METOPROLOL SUCCINATE 50 MG TAB.SR.24H (TOPROL XL) PO SCH (08:44)
[2016-11-11] MEDS: SERTRALINE HCL 50 MG TABLET PO SCH (08:44)
[2016-11-11] MEDS: FUROSEMIDE 40 MG TABLET PO SCH (08:45)
[2016-11-11] MEDS: ASPIRIN 81 MG TABLET(ECOTRIN) PO SCH (08:45)
[2016-11-11] MEDS: LINEZOLID 300 ML IV SCH (10:04)
[2016-11-11] MEDS ORDERED: cefTRIAXone 1 GM in D5W 50 ML IV ONE (12:00)
[2016-11-11] MEDS: INSULIN REGULAR, HUMAN 100 UNITS/ML, 10 ML VIAL (novoLIN R) SUBCUT PRN (12:08)
[2016-11-11 12:55] VITALS: BP 117/67; PULSE 74; RESP 18; TEMP 98.1; O2SAT 98
[2016-11-11 16:00] VITALS: BP 121/63; PULSE 78; RESP 17; TEMP 98.1; O2SAT 94
[2016-11-11 19:58] VITALS: BP 133/60; PULSE 87; RESP 18; TEMP 97.5; O2SAT 93
[2016-11-12] MEDS ORDERED: cefTRIAXone 1 GM in D5W 50 ML IV SCH (09:00)
== END 2016-11-11 20:45 | DRG 371 ==
LOC: SED 09:41 → STU 13:53 → SMU 10-31 16:47
PROVIDERS: ADMIT Family Medicine; ATTEND Family Medicine
PROC: 0W9G3ZZ Drainage of Peritoneal Cavity, Percutaneous Approach (ICD-10-PCS; 2016-11-03)
PROC: BW40ZZZ Ultrasonography of Abdomen (ICD-10-PCS; 2016-11-03)
PROC: 0DB68ZX Excision of Stomach, Via Natural or Artificial Opening Endoscopic, Diagnostic (ICD-10-PCS; 2016-11-05)
PROC: 30233N1 Transfusion of Nonautologous Red Blood Cells into Peripheral Vein, Percutaneous Approach (ICD-10-PCS; 2016-11-05)
PROC: BD14YZZ Fluoroscopy of Colon using Other Contrast (ICD-10-PCS; 2016-11-05)
PROC: 0DB98ZX Excision of Duodenum, Via Natural or Artificial Opening Endoscopic, Diagnostic (ICD-10-PCS; principal; 2016-11-05 12:00)
PROC: 0DJD8ZZ Inspection of Lower Intestinal Tract, Via Natural or Artificial Opening Endoscopic (ICD-10-PCS; 2016-11-06)
DX: K65.9 Peritonitis, unspecified (principal); E43 Unspecified severe protein-calorie malnutrition; R18.8 Other ascites; N39.0 Urinary tract infection, site not specified; D64.9 Anemia, unspecified; E03.9 Hypothyroidism, unspecified; F01.50 Vascular dementia, unspecified severity, without behavioral disturbance, psychotic disturbance, mood disturbance, and anxiety; F31.9 Bipolar disorder, unspecified; I51.7 Cardiomegaly; E11.65 Type 2 diabetes mellitus with hyperglycemia; M81.0 Age-related osteoporosis without current pathological fracture; K43.9 Ventral hernia without obstruction or gangrene; K57.30 Diverticulosis of large intestine without perforation or abscess without bleeding; K64.8 Other hemorrhoids; I12.9 Hypertensive chronic kidney disease with stage 1 through stage 4 chronic kidney disease, or unspecified chronic kidney disease; N18.2 Chronic kidney disease, stage 2 (mild); K29.70 Gastritis, unspecified, without bleeding; B96.20 Unspecified Escherichia coli [E. coli] as the cause of diseases classified elsewhere; E11.22 Type 2 diabetes mellitus with diabetic chronic kidney disease; E86.0 Dehydration; M19.90 Unspecified osteoarthritis, unspecified site; Z66 Do not resuscitate; Z16.21 Resistance to vancomycin; Z78.9 Other specified health status; Z79.899 Other long term (current) drug therapy; Z68.35 Body mass index [BMI] 35.0-35.9, adult; I69.311 Memory deficit following cerebral infarction; Z79.84 Long term (current) use of oral hypoglycemic drugs; Z83.3 Family history of diabetes mellitus; Z80.9 Family history of malignant neoplasm, unspecified
CPT/HCPCS: 36415; 43239; 45378; 49083; 70450-TC; 71010; 74000-TC; 74270-TC; 76700-TC; 76705; 80048; 80053; 80074; 81000-TC; 82042; 82103; 82105; 82150-TC; 82607; 82728; 82746; 82962; 83516; 83540-TC; 83550-TC; 83605; 83690-TC; 83735-TC; 84134; 84157-TC; 84439; 84443-TC; 85025; 85610-TC; 85730-TC; 86038; 86886; 86900; 86901; 86920; 87040-TC; 87070-TC; 87081; 87086; 87186-TC; 88305; 88312; 88313; 89051-TC; 93306; 94640; 94760; 96361; 96374; 99285; C1729; J0692; J0696; J0713; J1815; J1940; J2020; J2175; J2250; J2405; J7030; J7040; J7060; P9021